=== PATIENT | female | born 1955 | race Caucasian/White ===

== ENCOUNTER → 2018-11-29 | Outpatient (REF) | LOC: M LAB LCGH 15:21 | PROVIDERS: ATTEND Surgery | DX: Z86.010 Personal history of colon polyps (principal) ==

== ENCOUNTER 2019-08-06 19:12 | Emergency (ER) | payer BC, MEDICARE ==
[~2019-08-06] VITALS: Ht 170.2 cm; Wt 94.5 kg
[2019-08-06] MEDS ORDERED: CITA20TA6 (19:21)
[2019-08-06] MEDS ORDERED: OMEP-221 (19:21)
[2019-08-06] MEDS ORDERED: ACETAMINOPHEN 500 MG TAB PO ONE (20:45)
[2019-08-06 21:34] VITALS: BP 137/65
--- NOTE | 2019-08-07 07:58 | REP ---
Clinical: Trauma. Fall. Technique: AP and lateral views of the right humerus. Findings: Osseous structures, joint spaces, and surrounding soft tissues appear normal. No acute fracture dislocation. No subcutaneous emphysema or foreign body. Impression: No acute fracture or dislocation. Electronically Signed by Kingsley Castellano MD 08/07/2019 07:50 A
--- NOTE | 2019-08-07 07:59 | REP ---
Clinical: Trauma. Technique: AP, lateral, bilateral oblique views right wrist . Findings: The carpal bones, surrounding osseous structures, soft tissues, and joint spaces are normal. There is no evidence for acute fracture or dislocation. No subcutaneous emphysema or radiodense foreign body. Impression: Normal wrist series. No acute fracture or dislocation. Electronically Signed by Kingsley Castellano MD 08/07/2019 07:51 A
== END 2019-08-06 21:41 | disposition home or self-care (01) ==
LOC: M ED 19:12
DX: S63.501A Unspecified sprain of right wrist, initial encounter (principal); S00.31XA Abrasion of nose, initial encounter; W01.198A Fall on same level from slipping, tripping and stumbling with subsequent striking against other object, initial encounter; Y92.511 Restaurant or cafe as the place of occurrence of the external cause; Y93.01 Activity, walking, marching and hiking; Y99.8 Other external cause status; Z91.018 Allergy to other foods; Z79.899 Other long term (current) drug therapy